=== PATIENT | female | born 1955 | race Caucasian/White ===

== ENCOUNTER 2022-10-12 08:24 | Day surgery (SDC) | payer MEDICARE ==
[~2022-10-12] VITALS: Ht 170.2 cm; Wt 94.1 kg
[2022-10-12 08:52] VITALS: BP 135/64
[2022-10-12 08:58] VITALS: BP 135/64
[2022-10-12] MEDS ORDERED: LORazepam 0.5 MG tablet PO ONE (09:32)
[2022-10-12] MEDS ORDERED: EZET10TA48 PO (09:34)
[2022-10-12] MEDS ORDERED: OLME5TAB32 PO (09:34)
[2022-10-12] MEDS ORDERED: MULT-1085 PO (09:34)
[2022-10-12] MEDS ORDERED: OSC500T PO (09:34)
[2022-10-12] MEDS ORDERED: CHOL3000 PO (09:34)
[2022-10-12 09:58] LABS: BASOPHILS # (AUTO) 0.1 X10'3 (0-0.2); BASOPHILS % (AUTO) 0.9 % (0-1); EOSINOPHILS # (AUTO) 0.6 X10'3 (0-0.9); EOSINOPHILS % (AUTO) 9.2 % (0-6); HEMATOCRIT 38.7 % (35.0-45.0); HEMOGLOBIN 13.2 g/dl (12.0-16.0); LYMPHOCYTES # (AUTO) 1.2 X10'3 (1.1-4.8); LYMPHOCYTES % (AUTO) 19.2 % (21-51); MEAN CORPUSCULAR HEMOGLOBIN 30.1 PG (27.0-31.0); MEAN CORPUSCULAR HGB CONC 34.2 g/dL (33.0-36.5); MEAN PLATELET VOLUME 7.5 FL (7.4-10.4); MONOCYTES # (AUTO) 0.7 X10'3 (0-0.9); MONOCYTES % (AUTO) 11.8 % (2-12); NEUTROPHILS # (AUTO) 3.6 X10'3 (1.8-7.7); NEUTROPHILS % (AUTO) 58.9 % (42-75); PLATELET COUNT 204 X10'3 (140-440); RED CELL DISTRIBUTION WIDTH 14.4 % (11.5-14.5); WHITE BLOOD COUNT 6.2 X10'3 (4.5-11.0)
[2022-10-12] MEDS ORDERED: fentaNYL/PF 50MCG/1 ML 2ML syringe ONE (10:37)
[2022-10-12 11:40] VITALS: BP 145/75
--- NOTE | 2022-10-12 12:20 | NUR ---
Pt oozing blood, very small amount about 1 ml total from port site, cleaned with chlorhexidine and covered with pressure dressing. Dr Cedillo made aware and no other actions needed, cleared for discharge now.
== END 2022-10-12 12:30 | disposition home or self-care (01) ==
LOC: SSTAY O 08:24
PROVIDERS: ATTEND Radiology Vascular & Interventional Radiology
DX: C57.00 Malignant neoplasm of unspecified fallopian tube (principal); I10 Essential (primary) hypertension; C56.9 Malignant neoplasm of unspecified ovary; C55 Malignant neoplasm of uterus, part unspecified; Z98.890 Other specified postprocedural states; Z85.41 Personal history of malignant neoplasm of cervix uteri; Z96.652 Presence of left artificial knee joint; Z87.891 Personal history of nicotine dependence; Z79.899 Other long term (current) drug therapy; Z90.49 Acquired absence of other specified parts of digestive tract; Z90.5 Acquired absence of kidney; Z80.0 Family history of malignant neoplasm of digestive organs
CPT/HCPCS: 36415; 36561; 76937; 77001; 85025; 87811; C1788; J3010; J7030; 99152; 99153; A6449